=== PATIENT | male | born 1955 | race Caucasian/White ===

== ENCOUNTER 2016-10-21 10:25 | Day surgery (SDC) | payer OTHER ==
[2016-10-18 13:39] VITALS: BMI 31.5
[~2016-10-21 10:25] MED LIST: LACTATED RINGERS 1,000 ML IV SCH; LIDOCAINE 1% 20 ML VIAL (10MG/ML) FOR IV START INTRADERMA PRN
[2016-10-21 10:55] VITALS: RESP 16; TEMP 98.2
[2016-10-21] MEDS ORDERED: PROPOFOL 10 MG/ML 20 ML VIAL IV ONE (13:00)
[2016-10-21] MEDS ORDERED: IV FLUID CONTINUATION 1,000 ML IV ONE (13:19)
--- NOTE | 2016-10-21 13:37 | P.PCN ---
Date of Procedure: 10/21/16 Preoperative Diagnosis: Postoperative Diagnosis: Procedure(s) Performed: Procedure: Colonoscopy and polypectomy. Preoperative diagnosis: Screening for neoplasia. Postoperative diagnosis: Rectal polyp snared but no large polyps or cancer. Preparation: HalfLytely prep. Sedation: Was provided by anesthesia. Brief clinical history: The patient is a 61-year-old male who is scheduled for this evaluation because of history of polyps and family history of colon cancer. His last exam was in 2008. The patient has no abdominal complaints, bleeding or anemia. Procedure: With the patient on his left lateral decubitus position and after informed consent and adequate sedation, the perianal area was inspected and it did not show any fissures or fistulas. There were no masses felt on digital rectal examination. The Olympus CFQ 160L video colonoscope was then inserted in the rectum in the usual fashion and advanced to the cecum. The mucosa appeared healthy and there was mosaic patterns and mild hyperpigmentation consistent with melanosis coli. There was a small polyp in the rectum within 2 or 3 cm from the anal verge which was snared and retrieved by suction but there were no large polyps or cancer. No obvious diverticular disease or other pathology. I retroflexed the endoscope in the rectum before the endoscope was withdrawn. The patient tolerated the procedure well. Plan: The patient was reassured. In light of his family history and history of polyps, I recommended repeat exam in 5 years. He will follow up with you as planned. Implants: Indications for Procedure: Operative Findings: Description of Procedure:
[2016-10-21 14:17] VITALS: BP 140/93; PULSE 54
== END 2016-10-21 14:31 | disposition home or self-care (01) ==
LOC: ORWHC2ENDO 10:25
DX: Z12.11 Encounter for screening for malignant neoplasm of colon (principal); D12.8 Benign neoplasm of rectum; Z86.010 Personal history of colon polyps; Z80.0 Family history of malignant neoplasm of digestive organs; E07.9 Disorder of thyroid, unspecified; E78.5 Hyperlipidemia, unspecified; Z88.0 Allergy status to penicillin; Z88.2 Allergy status to sulfonamides; Z88.8 Allergy status to other drugs, medicaments and biological substances; Z91.040 Latex allergy status; Z79.899 Other long term (current) drug therapy
CPT/HCPCS: 88305; 45385; J2704

== ENCOUNTER → 2019-08-09 | Outpatient (CLI) | payer MEDICARE, OTHER ==
--- NOTE | 2019-08-09 11:06 | US ---
EXAMINATION TYPE: US abdomen complete DATE OF EXAM: 08/09/2019 COMPARISON: NONE CLINICAL HISTORY: R10.13 Epigastric pain. Epigastric pain and nausea x couple weeks EXAM MEASUREMENTS: Liver Length: 17.2 cm Gallbladder Wall: 0.2 cm CBD: 0.4 cm Spleen: 11.2 cm Right Kidney: 9.6 x 4.6 x 5.1 cm Left Kidney: 10.9 x 6.0 x 5.3 cm Pancreas: visualized portions wnl, limited by overlying midline bowel gas Liver: There is increased echogenicity of the hepatic parenchyma with diminished visualization of th e portal triads most commonly relating to hepatic steatosis and limiting evaluation for underlying he patic masses. Gallbladder: 0.6cm non mobile echogenic shadowing focus seen Evidence for sonographic Valadez's sign: no CBD: visualized portion wnl, limited by overlying bowel gas Spleen: visualized portions wnl, limited by overlying bowel gas Right Kidney: wnl Left Kidney: 1.3 x 1.6 x 1.6cm hypoechoic area medial inferior pole. This appears to have increased or transmission and a well-defined posterior wall and is avascular likely a complicated cyst. Upper IVC: wnl Abd Aorta: visualized portions wnl, limited by overlying midline bowel gas IMPRESSION: 1. Sonographic findings most commonly related to hepatic steatosis. Correlate with liver function edwin ts. 2. Cholelithiasis in a contracted gallbladder. Common bile duct appears within normal limits although partially obscured by bowel gas. No convincing evidence of acute cholecystitis sonographically. Pooja elate with serum laboratory values. Negative sonographic Valadez's sign. 3. Probable complicated 1.6 cm left renal cyst.
--- NOTE | 2019-08-09 11:54 | FL ---
EXAMINATION TYPE: FL UGI air DATE OF EXAM: 08/09/2019 COMPARISON: NONE HISTORY: Epigastric pain. History of lung cancer and neck cancer 1 year ago. TECHNIQUE: A single/double contrast UGI study is performed. 1 minute and 29 seconds of fluoroscopy t patricio utilized with 52 fluoroscopic images saved. FINDINGS: There is an upper esophageal diverticulum identified on a single fluoroscopic image only (27/52). Thi s is located in the patient's area of dysphagia per history. There are few tertiary contractions seen . There is a small hiatal hernia. No stricture is identified. No significant gastroesophageal reflux. The stomach shows normal distensibility, peristalsis, and mucosal folds. No evidence of any mass or ulcer disease. The duodenal bulb, sweep, and proximal small bowel loops are unremarkable. IMPRESSION: 1. Upper esophageal diverticulum seen at the thoracic inlet on a single view only. 2. Tertiary contractions most commonly of presbyesophagus. Few esophageal spasms are also seen that a re intermittent. 3. Small hiatal hernia.
== END | disposition home or self-care (01) ==
LOC: RADUSWWP 10:12
PROVIDERS: ATTEND Family Medicine
DX: K80.80 Other cholelithiasis without obstruction (principal); K22.8 Other specified diseases of esophagus; K44.9 Diaphragmatic hernia without obstruction or gangrene; K22.4 Dyskinesia of esophagus
CPT/HCPCS: 74246; 76700

== ENCOUNTER 2021-12-22 06:37 | Day surgery (SDC) | payer MEDICARE ==
[2021-12-18 15:34] VITALS: BMI 31.8
[~2021-12-22 06:37] MED LIST changes: -LACTATED RINGERS 1,000 ML IV SCH; +LIDOCAINE 1% (10MG/ML) FOR IV START INTRADERMA PRN; -LIDOCAINE 1% 20 ML VIAL (10MG/ML) FOR IV START INTRADERMA PRN
[2021-12-22 07:13] VITALS: TEMP 97.9
[2021-12-22] MEDS: LACTATED RINGERS 1,000 ML IV SCH ×3 (07:22→07:47)
[2021-12-22] MEDS ORDERED: PROPOFOL 10 MG/ML 20 ML VIAL IV ONE (07:47)
[2021-12-22] MEDS ORDERED: LIDOCAINE 2% INJ 20 MG/ML (2 ML VIAL) ONE (07:47)
[2021-12-22] MEDS ORDERED: IV FLUID CONTINUATION 1,000 ML IV ONE ×2 (08:10)
[2021-12-22 08:28] VITALS: RESP 16
[2021-12-22 08:42] VITALS: BP 134/84; PULSE 58
--- NOTE | 2021-12-22 08:42 | P.PCN ---
Date of Procedure: 12/22/21 Procedure(s) Performed: BRIEF HISTORY: Patient is a 58-year-old pleasant male scheduled for an elective colonoscopy as a part of follow-up of large colon polyp that was from recent colonoscopy in September 2021. He was noted to have a 3 cm broad-based ascending colon polyp that was only partially removed and biopsies revealed adenoma. PROCEDURE PERFORMED: Colonoscopy with snare polyp rectum and Endo Clip placement. PREOPERATIVE DIAGNOSIS: Follow-up large ascending colon polyp noted on colonoscopy in September 2021. IV sedation per Anesthesia. PROCEDURE: After informed consent was obtained, the patient, was brought into the endoscopy unit. IV sedation was administered by Anesthesia under continuous monitoring. Digital rectal examination was normal. Initially the Olympus CF-160 flexible video colonoscope was then inserted in the rectum, gradually advanced into the cecum without any difficulty. Careful examination was performed as the scope was gradually being withdrawn. Ileocecal valve and the appendiceal orifice were visualized and appeared normal. Prep was excellent. Mucosa of the cecum, appeared normal I There was a 25 mm polyp in the cecum that was removed by snare polypectomy. In the Ascending colon there was a 2 cm residual polyp identified which was completely removed with the piecemeal snare polypectomy. Following this an Endo Clip was placed. Rest of the ascending colon, transverse colon, descending colon, sigmoid colon, and rectum appeared normal. Retroflexion was performed in the rectum and no lesions were seen. The patient tolerated the procedure well. IMPRESSION: 2 cm with severe broad-based polyp in the ascending colon status post snare polypectomy followed by Endo Clip placement and complete polypectomy accomplished 5 mm cecal polyp status post polypectomy Rest of the colon appeared normal. RECOMMENDATIONS: Findings of this examination were discussed with the patientas well as his family. He was advised to follow with the biopsy results. Recommend repeat colonoscopy in one year..
== END 2021-12-22 09:11 | disposition home or self-care (01) ==
LOC: ORWHC2ENDO 06:37
PROVIDERS: ATTEND Internal Medicine Gastroenterology
DX: Z12.11 Encounter for screening for malignant neoplasm of colon (principal); C18.2 Malignant neoplasm of ascending colon; Z86.010 Personal history of colon polyps; I10 Essential (primary) hypertension; E07.9 Disorder of thyroid, unspecified; C34.90 Malignant neoplasm of unspecified part of unspecified bronchus or lung; Z88.0 Allergy status to penicillin; Z88.2 Allergy status to sulfonamides; Z91.040 Latex allergy status; Z79.890 Hormone replacement therapy; Z79.899 Other long term (current) drug therapy; Z88.1 Allergy status to other antibiotic agents; Z87.891 Personal history of nicotine dependence; Z80.9 Family history of malignant neoplasm, unspecified
CPT/HCPCS: 88305; 45382; 45385; J2704; J2001

== ENCOUNTER → 2021-12-29 | Outpatient (CLI) | payer MEDICARE ==
[2021-12-29 16:11] LABS: African American GFR (CKD) >90 (>60 ml/min/1.73 sqM); Blood Urea Nitrogen 12 mg/dL (9-20); Non-African American GFR(CKD) 82 (>60 ml/min/1.73 sqM)
--- NOTE | 2021-12-29 19:14 | CT ---
EXAMINATION TYPE: CT abdomen pelvis w con CT DLP: 1690.4 mGycm, Automated exposure control for dose reduction was used. DATE OF EXAM: 12/29/2021 5:42 PM COMPARISON: None. CLINICAL INDICATION:Male, 66 years old with history of C18.2 MALIGNANT NEOPLASM OF ASCENDING COLON; M ALIGNANT NEOPLASM OF ASCENDING COLON TECHNIQUE: Axial CT of the abdomen and pelvis. Sagittal and coronal reformats were created on a [employer] workstation. Contrast used:100 mL of Isovue 300 with IV Contrast, Oral contrast used: with Oral Contrast FINDINGS: LOWER CHEST: Unremarkable ABDOMEN LIVER: Diffusely hypoattenuating parenchyma. No suspicious lesions. GALLBLADDER AND BILE DUCTS: Increased density layering within the gallbladder lumen. PANCREAS: Unremarkable. SPLEEN: Unremarkable. ADRENAL GLANDS: Unremarkable. KIDNEYS AND URETERS: No evidence of hydronephrosis or renal calculus. Left renal cyst. PELVIS BLADDER: Unremarkable REPRODUCTIVE: Prostate is enlarged in size measuring 6.8 cm in transverse dimension. ABDOMEN & PELVIS STOMACH AND BOWEL: The ascending colon/entire colon does not demonstrate area of wall thickening or e vidence for mass. No evidence of bowel obstruction. Appendix is normal. Terminal ileum appears within normal limits. PERITONEUM: No evidence of pneumoperitoneum or free fluid. VASCULATURE: Mild atherosclerotic calcifications are present throughout the abdominal aorta and its b ranches. No evidence of aortic aneurysm. MUSCULOSKELETAL: No acute osseous abnormalities, mild multilevel disc degeneration changes. LYMPH NODES: No gross evidence for lymphadenopathy. SOFT TISSUE/ABDOMINAL WALL: Unremarkable IMPRESSION: 1. No evidence for ascending colon mass or definitive wall thickening. No mesenteric lymph nodes lex ntified. No hepatic lesions identified. 2. Hepatic steatosis. 3. Cholelithiasis. 4. Prostatomegaly.
== END | disposition home or self-care (01) ==
LOC: RADCTMAIN 15:14
PROVIDERS: ATTEND Internal Medicine Gastroenterology
DX: C18.2 Malignant neoplasm of ascending colon (principal); K76.0 Fatty (change of) liver, not elsewhere classified; K80.20 Calculus of gallbladder without cholecystitis without obstruction
CPT/HCPCS: 82565; 84520; 74177; 36415; Q9967

== ENCOUNTER → 2022-08-20 | Outpatient (CLI) | payer MEDICARE ==
--- NOTE | 2022-08-22 16:14 | CT ---
EXAMINATION TYPE: CT abdomen pelvis w con DATE OF EXAM: 08/20/2022 COMPARISON: 12/29/2021 INDICATION: R sided abdominal pain. hx of colon ca and bowel sx. DLP: 1810.30 mGycm, Automated exposure control for dose reduction was used. CONTRAST: 100 mL of Isovue 300. Study performed with Oral Contrast TECHNIQUE: Axial images were obtained from above the diaphragm to the pubic rami in the axial plane a t 5 mm thick sections. Reconstructed images are reviewed on the computer in the coronal plane. FINDINGS: Limited CT sections are obtained the lung bases. The lung bases are clear. CT ABDOMEN: Liver: Normal Spleen: Normal Pancreas: Normal Adrenal glands: The adrenal glands are normal. Gallbladder: Gallstones are present. Kidneys: No masses are evident. No hydronephrosis is present. There is a 2.3 cm cyst on the lateral left kidney. Delayed images were obtained through the kidneys, which remain unremarkable. Aorta: Vascular calcification is within the aorta. Inferior vena cava: Normal. CT PELVIS: Some inflammatory changes are in the right paracolic gutter. Example image series 4 image 46. This is nonspecific but an interval change from comparison. Fecal debris is through the colon. Small bowel l oops distended with oral contrast. Normal. Oral contrast extends to the ascending colon. There are lo ops of bowel which are incompletely distended or lack oral contrast limiting their evaluation. Appendix: Normal as visualized. Urinary bladder: Normal. Genitourinary structures: Prostate is prominent. Osseous structures: No suspicious lytic or sclerotic lesions. Some subcutaneous increased densities present may be related to the patient's abdominal surgery. IMPRESSIONS: 1. Mild nonspecific inflammatory change in the right paracolic gutter. Correlate with surgical histo ry. Postsurgical change could be considered. Follow-up can be performed.
== END | disposition home or self-care (01) ==
LOC: RADCTMAIN 17:29
PROVIDERS: ATTEND Family Medicine
DX: C18.2 Malignant neoplasm of ascending colon (principal); K66.8 Other specified disorders of peritoneum; R10.811 Right upper quadrant abdominal tenderness; R10.813 Right lower quadrant abdominal tenderness
CPT/HCPCS: 74177; Q9967

== ENCOUNTER 2022-12-10 10:18 | Day surgery (SDC) | payer MEDICARE ==
[2022-12-08 15:06] VITALS: BMI 31.8
[2022-12-10 10:41] VITALS: TEMP 98
[2022-12-10] MEDS ORDERED: LACTATED RINGERS 1,000 ML IV ONE (10:41)
[2022-12-10] MEDS ORDERED: PROPOFOL 10 MG/ML 20 ML VIAL IV ONE (11:23)
--- NOTE | 2022-12-10 11:49 | P.PCN ---
Date of Procedure: 12/10/22 Procedure(s) Performed: BRIEF HISTORY: Patient is a 67-year-old pleasant white male scheduled for an elective colonoscopy as a part of surveillance of prior history of colon cancer diagnosed in November 2021 for 58 underwent right colectomy. His been having intermittent rectal bleeding. PROCEDURE PERFORMED: Colonoscopy. PREOPERATIVE DIAGNOSIS: Follow-up colon cancer diagnosed in November 2021 and intermittent rectal bleeding. IV sedation per Anesthesia. PROCEDURE: After informed consent was obtained, the patient, was brought into the endoscopy unit. IV sedation was administered by Anesthesia under continuous monitoring. Digital rectal examination was normal. Initially the Olympus CF-160 flexible video colonoscope was then inserted in the rectum, gradually advanced into the right colon without any difficulty. Careful examination was performed as the scope was gradually being withdrawn. The ileocolic anastomosis was visualized and appeared normal. Mucosa of the transverse colon, descending colon, sigmoid colon, and rectum appeared normal. Retroflexion was performed in the rectum and small internal were seen. The patient tolerated the procedure well. IMPRESSION: Normal-appearing colon from rectum to right colon with ileocolic anastomosis was visualized and appeared normal. Small internal hemorrhoids. RECOMMENDATIONS: Findings of this examination were discussed with the patient as well as his family. He was advised to have a repeat surveillance colonoscopy in 2 years..
[2022-12-10] MEDS ORDERED: LACTATED RINGERS 1,000 ML IV SCH (12:06)
[2022-12-10 12:08] VITALS: BP 118/81; PULSE 82; RESP 16
== END 2022-12-10 12:29 | disposition home or self-care (01) ==
LOC: ORWHC2ENDO 10:18
PROVIDERS: ATTEND Internal Medicine Gastroenterology
DX: K64.8 Other hemorrhoids (principal); Z85.038 Personal history of other malignant neoplasm of large intestine; Z98.0 Intestinal bypass and anastomosis status; E78.5 Hyperlipidemia, unspecified; E03.9 Hypothyroidism, unspecified; Z85.118 Personal history of other malignant neoplasm of bronchus and lung; Z85.818 Personal history of malignant neoplasm of other sites of lip, oral cavity, and pharynx; Z79.890 Hormone replacement therapy; Z79.899 Other long term (current) drug therapy; Z88.0 Allergy status to penicillin; Z88.1 Allergy status to other antibiotic agents; Z88.2 Allergy status to sulfonamides; Z91.040 Latex allergy status
CPT/HCPCS: 45378; J2704

== ENCOUNTER → 2023-11-09 | Outpatient (CLI) | payer MEDICARE ==
--- NOTE | 2023-11-12 21:11 | MR ---
EXAMINATION TYPE: MR Prostate wo/w con DATE OF EXAM: 11/09/2023 9:28 AM COMPARISON: None. CLINICAL INDICATION:Male, 68 years old with history of Z12.2 SCREEN FOR MALIG NEOPLASM OF RESPITORY O RGAN; Elevated PSA TECHNIQUE: Multi-planar, multi-sequence imaging of the pelvis is performed prior to and following the uncomplicated administration of bolus intravenous gadolinium. CONTRAST: 10 Gadavist Interpretive Criteria: PI-RADS v2.1 SERUM PSA: PSA-10/04/23-9.07 10/10/23-8.3 SURGICAL PATHOLOGY: No data available. FINDINGS: Prostatic dimensions: 6.3 x 4.7 x 2.9 cm. "Bullet" Volume:56.20 (PSA density=0.16 ng/mL/mL) CENTRAL GLAND (Central and Transition Zones/CZ+TZ): Multiple bilateral, heterogenous appearing hypertrophic stromal nodules, without suspicious lesion. M edian lobe hypertrophy with protrusion into the base of the bladder. (PI-RADS 2) PERIPHERAL ZONE (PZ): Bilateral linear, indistinct wedgelike areas of low ADC, and low T2 signal, No evidence of masslike a bnormality, or localized perfusional hypervascularity, to further suggest a focus of clinically signi ficant prostate cancer. (PI-RADS 2) SEMINAL VESICLES (SV): Symmetric and unremarkable. PERIPROSTATIC TISSUES: Unremarkable. LYMPH NODES: No enlarged pelvic lymph node. REMAINING PELVIS: Bladder wall is distended and otherwise within normal limits given distention. No abnormal free or organized intrapelvic fluid collection. No pathologic bowel dilation or mural thickening. No hernia visualized OSSEOUS STRUCTURES: No suspicious osseous abnormality. IMPRESSION: 1. No specific features for high-risk prostate cancer. Maximum PI-RADS score: 2. 2. Moderate BPH, estimated gland volume 56.20 mL. 3. No suspicious osseous lesion. No lymphadenopathy. No evidence of prostate adenocarcinoma involving the periprostatic tissues.
== END | disposition home or self-care (01) ==
LOC: RADMRIMAIN 08:00
PROVIDERS: ATTEND Urology
DX: R97.20 Elevated prostate specific antigen [PSA] (principal); N40.0 Benign prostatic hyperplasia without lower urinary tract symptoms
CPT/HCPCS: 72197; A9585